=== PATIENT | male | born 1980 | race Caucasian/White ===

== ENCOUNTER 2018-12-29 10:04 | Emergency (ER) | payer OTHER ==
[~2018-12-29] VITALS: Ht 188 cm; Wt 102.1 kg
[2018-12-29] MEDS ORDERED: KETOROLAC TROME10 MG PO (10:50)
[2018-12-29] MEDS ORDERED: BACLOFEN10 MG PO (10:50)
== END 2018-12-29 11:06 | disposition home or self-care (01) ==
LOC: ED 10:04
DX: L60.0 Ingrowing nail (principal); G89.29 Other chronic pain; M54.5 Low back pain; F31.9 Bipolar disorder, unspecified; F20.9 Schizophrenia, unspecified; F17.200 Nicotine dependence, unspecified, uncomplicated
CPT/HCPCS: 99283